=== PATIENT | female | born 1965 | race Caucasian/White ===

== ENCOUNTER 2016-11-25 23:31 | Observation (INO) | payer MEDICARE, OTHER ==
[~2016-11-25] VITALS: Ht 162.6 cm; Wt 81.1 kg
[~2016-11-25 23:31] MED LIST: BETH25 PO; CELE200C PO; CETI10 PO; CYMB60CA PO; ESOM1CAP6 PO; ESTR0.5T PO; FENO160T PO; GABA300C3 PO; INSU100V SQ; KLOR20TA6 PO; LASI20TA PO; LEVO.125 PO; LISI-363 PO; LORA1TAB PO; PERC5TAB12 PO; PROM25TA5 PO; RIVA15 PO; SUCR1TAB PO; SUMA50 PO; ZOLP10TA3 PO; [UNRECOGNIZED DRUG - OTHER]
[2016-11-25 23:38] VITALS: BP 166/91; PULSE 98; RESP 16; TEMP 98.2; O2SAT 100
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
[2016-11-26] MEDS ORDERED: INSULIN HUMAN REGULAR 1,000 UNITS/10 ML VIAL IVP ONE (00:15)
[2016-11-26] MEDS ORDERED: TETANUS/DIPHTHERIA TOXOID ADULT 0.5 ML VIAL IM ONE (00:15)
[2016-11-26 00:42] LABS: BLOOD, URINE TRACE (NEG); KETONE, URINE NEG (NEG); NITRITE,URINE NEG (NEG)
[2016-11-26 00:43] LABS: AUTOMATED NEUTROPHIL # 5.2 TH/MM3 (1.8-7.7); BASOPHIL % 0.3 % (0.0-2.0); EOSINOPHIL # 0.1 TH/MM3 (0-0.4); EOSINOPHIL % 0.6 % (0.0-4.0); HEMATOCRIT 38.9 % (35.0-46.0); HEMO FLAGS DIFF FINAL; LYMPH % 33.7 % (9.0-44.0); LYMPHOCYTE # 3.1 TH/MM3 (1.0-4.8); MEAN CELL VOLUME 83.9 FL (80.0-100.0); MEAN CORPUSCULAR HEMOGLOBIN 27.9 PG (27.0-34.0); MEAN CORPUSCULAR HGB CONC 33.3 % (32.0-36.0); MONO % 8.5 % (0.0-8.0); NEUT % 56.9 % (16.0-70.0); PLATELET COUNT 190 TH/MM3 (150-450); RED BLOOD COUNT 4.64 MIL/MM3 (4.00-5.30); RED CELL DISTRIBUTION WIDTH 13.2 % (11.6-17.2); WHITE BLOOD COUNT 9.2 TH/MM3 (4.0-11.0)
[2016-11-26 00:48] LABS: GLUCOSE,URINE 1000 OR GREATER mg/dL (NEG); URINE COLOR STRAW (YELLW/STRAW)
[2016-11-26 00:49] LABS: RBC, URINE 0-3 /hpf (0-3); WBC, URINE 0-2 /hpf (0-5)
[2016-11-26 00:49] LABS: POTASSIUM 4.2 MEQ/L (3.5-5.1)
[2016-11-26] MEDS: SODIUM CHLOR 0.9% 1000 ML INJ 1,000 ML IV SCH ×2 (00:49→01:08)
[2016-11-26 00:50] LABS: COMMENT (UR) CULT NOT INDICATED; CULTURE IF INDICATED CULT NOT INDICATED
[2016-11-26 00:52] LABS: BICARBONATE 25.5 MEQ/L (21.0-32.0)
[2016-11-26] MEDS ORDERED: LEVO175T2 PO (01:35)
[2016-11-26] MEDS ORDERED: AMBI10TA PO (01:35)
[2016-11-26] MEDS ORDERED: PROM25TA5 PO (01:35)
[2016-11-26] MEDS ORDERED: GABA300C5 PO (01:35)
[2016-11-26] MEDS ORDERED: DIVA250T3 PO (01:35)
[2016-11-26] MEDS ORDERED: FENO145T2 PO (01:35)
[2016-11-26] MEDS ORDERED: ESTR0.5T3 PO (01:35)
[2016-11-26] MEDS ORDERED: IMIT50TA PO (01:35)
[2016-11-26] MEDS ORDERED: SUCR1TAB PO (01:35)
[2016-11-26] MEDS ORDERED: DULO1CAP3 PO (01:35)
[2016-11-26] MEDS ORDERED: LANTUS2P SQ (01:35)
[2016-11-26] MEDS ORDERED: LORA2TAB7 PO (01:35)
[2016-11-26] MEDS ORDERED: ATOR1TAB18 PO (01:35)
[2016-11-26] MEDS ORDERED: NEXI40CA PO (01:35)
[2016-11-26] MEDS ORDERED: NOVORP2 SQ (01:35)
[2016-11-26] MEDS ORDERED: BETH25TA2 PO (01:35)
[2016-11-26] MEDS ORDERED: CETI10 PO (01:35)
[2016-11-26] MEDS ORDERED: SILVER SULFADIAZINE 1% CR 50 GM JAR TOPICAL ONE (02:30)
[2016-11-26 02:35] VITALS: BP 140/88; PULSE 83; RESP 18; O2SAT 97
== END 2016-11-26 03:19 | disposition home or self-care (01) ==
LOC: PHED 23:31 → UNDOADMOB 11-26 02:14 → PHEDA 11-26 02:14 → UNDODISOB 11-26 03:19
PROVIDERS: ADMIT Internal Medicine; ATTEND Internal Medicine
DX: T23.362A Burn of third degree of back of left hand, initial encounter (principal); X18.XXXA Contact with other hot metals, initial encounter; F17.210 Nicotine dependence, cigarettes, uncomplicated; D64.9 Anemia, unspecified; I10 Essential (primary) hypertension; E11.9 Type 2 diabetes mellitus without complications; G62.9 Polyneuropathy, unspecified; Z79.82 Long term (current) use of aspirin
CPT/HCPCS: 16020; 80048; 81001; 85025; 90471; 90714; 96361; 96374; 99284; G0378; J1815; J7030; 16000

== ENCOUNTER → 2017-05-11 | Outpatient (CLI) | payer MEDICARE, OTHER ==
[~2017-05-11] MED LIST changes: +AMBI10TA PO; +ASPI81TA5 PO; +ATOR1TAB18 PO; -BETH25 PO; +BETH25TA2 PO; -CELE200C PO; -CYMB60CA PO; +DIVA250T3 PO; +DULO1CAP3 PO; -ESOM1CAP6 PO; -ESTR0.5T PO; +ESTR0.5T3 PO; +FENO145T2 PO; -FENO160T PO; +FURO1TAB62 PO; -GABA300C3 PO; +GABA300C5 PO; +IMIT50TA PO; -INSU100V SQ; -KLOR20TA6 PO; +LANTUS2P SQ; -LASI20TA PO; -LEVO.125 PO; +LEVO175T2 PO; +LEVO75TA3 PO; -LISI-363 PO; -LORA1TAB PO; +LORA2TAB7 PO; +NEXI40CA PO; +NOVORP2 SQ; -PERC5TAB12 PO; +POTA-163 PO; +PROM25TA10 PO; -RIVA15 PO; +SERT-132 PO; -SUMA50 PO; +XARE20TA PO; +XIFA550T4 PO; -ZOLP10TA3 PO; -[UNRECOGNIZED DRUG - OTHER]
[2017-05-11 13:21] LABS: HEMATOCRIT 39.1 % (35.0-46.0); MEAN CELL VOLUME 87.2 FL (80.0-100.0); MEAN CORPUSCULAR HGB CONC 33.3 % (32.0-36.0); PLATELET COUNT 188 TH/MM3 (150-450); RED BLOOD COUNT 4.48 MIL/MM3 (4.00-5.30); RED CELL DISTRIBUTION WIDTH 14.7 % (11.6-17.2); REVIEW FLAG FINAL; WHITE BLOOD COUNT 9.8 TH/MM3 (4.0-11.0)
--- NOTE | 2017-05-13 08:14 | EKG ---
Date Performed: 05/11/2017 Time Performed: 12:54:39 PTAGE: 51 years EKG: Sinus rhythm POSSIBLE LEFT ATRIAL ENLARGEMENT POSSIBLE ANTERIOR MYOCARDIAL INFARCTION, OF INDETERMINATE AGE ABNOR MAL ECG NO PREVIOUS TRACING DOCTOR: Vargas [place] Interpretating Date/Time 05/13/2017 08:07:05
== END ==
LOC: CPRE 12:34
PROVIDERS: ATTEND Specialist
DX: Z01.810 Encounter for preprocedural cardiovascular examination (principal); J32.0 Chronic maxillary sinusitis; Z01.812 Encounter for preprocedural laboratory examination
CPT/HCPCS: 36415; 85027; 93005

== ENCOUNTER → 2017-05-13 | Day surgery (SDC) | payer MEDICARE, OTHER ==
--- NOTE | 2017-05-12 09:33 | MH ---
cc: ZULEIKA BARLOW M.D. DATE OF ADMISSION: 05/13/2017 HISTORY OF PRESENT ILLNESS A 51-year-old female with chronic sinusitis and nasal obstruction, for nasal sinus surgery. PAST MEDICAL HISTORY Past medical history notable for: 1. Previous CVA. 2. Previous NE. 3. Rheumatoid arthritis. 4. Chronic otitis media PAST SURGICAL HISTORY Notable for mastoidectomy x3 on the left and x2 on the right. MEDICATION Xarelto. REVIEW OF SYSTEMS/FAMILY HISTORY AND SOCIAL HISTORY Unremarkable. PHYSICAL EXAMINATION GENERAL: Well-appearing patient. HEENT: Exam reveals mastoid bowl bilaterally clear. Nasal cavity septal deviation, turbinate hypertrophy. Oral cavity, neck within normal limits. LUNGS: Clear. HEART: Regular rate and rhythm. ABDOMEN: Soft and nontender. EXTREMITIES: Reveal some peripheral wasting of the left hand with decreased mobility of the left hand and left arm. IMPRESSION Patient with chronic sinusitis and nasal obstruction, on Xarelto, for surgical intervention to improve nasal obstruction and chronic sinusitis. The patient instructed as to method of surgery and possible complication to include anesthetic complication, cardiac difficulty, pulmonary difficulty, stroke, or even . Surgical complication of bleeding, infection. Instructed the patient to continue Xarelto, so will likely see more bleeding than the average patient. The patient completely understands risk analysis and is comfortable continuing Xarelto. Instructed also in terms of surgical complications including injury to brain including CSF leak, meningitis, brain abscess or even , injury to orbit including blindness and diplopia, persistent septal perforation, dry nose, synechia formation and chance for recurrent symptoms despite adequate surgery. The patient appeared to agree, accept and understand above-mentioned risks and benefits. In addition no guarantees or warranties regarding outcome were given. We will therefore proceed with surgery. MD JUANJOSE Philippe/BLAS /8:47 AM /9:15 AM
[~2017-05-13] VITALS: Ht 162.6 cm; Wt 82.8 kg
[~2017-05-13] MED LIST changes: +ACETAMINOPHEN 1000 MG/100 ML VIAL IV ONE; -BETH25TA2 PO; +CHLORHEXIDINE GLUCONATE 2 % 1 PACK (2 CLOTHS) TOPICAL PRN; +DEXAMETHASONE SOD PHOS 4 MG/ML VIAL ONE; +DO NOT ADM ANY ANTICOAGULANT DRUGS PRN; +EPINEPHrine HCL (1:1000) 30 MG/30 ML VIAL ONE; +FAMOTIDINE 20 MG/2 ML VIAL ONE; -FENO145T2 PO; +INSULIN HUMAN REGULAR 1,000 UNITS/10 ML VIAL SQ PRN; +LACTATED RINGER'S 1000 ML IV PRN; -LEVO175T2 PO; +LIDOCAINE 1%/EPINEPHrine 1:100,000 SOLN 20 ML VIAL ONE; +MEPERIDINE HCL 25 MG/ML VIAL IV PUSH PRN; +METOPROLOL TARTRATE 25 MG TAB PO PRN; +MIDAZOLAM HCL 2 MG/2 ML VIAL ONE; +ONDANSETRON HCL 4 MG/2 ML VIAL IV PUSH ONE; +ONDANSETRON HCL 4 MG/2 ML VIAL IV PUSH PRN; +PHENYLEPH/NS 1000 MCG/10 ML SYR IV ONE; +POVIDONE IODINE 5% (ANTISEPSIS KIT) 4 APPLICATIONS EACH NARE PRN; -PROM25TA5 PO; +PROPOFOL 200 MG/20 ML AMP IV ONE; +SODIUM CHLORID 0.9% 500 ML IV PRN; -SUCR1TAB PO; +SUGAMMADEX SODIUM 200 MG/2 ML VIAL IV PUSH ONE; +ePHEDrine/NS 25 MG/5 ML SYR IV ONE; +fentaNYL CITRATE 250 MCG/5 ML AMP ONE
[2017-05-13 08:44] VITALS: BP 102/64; PULSE 82; RESP 16; TEMP 98.5; O2SAT 97
[2017-05-13 13:57] VITALS: BP 114/75; PULSE 84; RESP 16; TEMP 97.6; O2SAT 96
--- NOTE | 2017-05-14 23:14 | MP ---
cc: ZULEIKA BARLOW DATE OF SURGERY 05/13/17 PREOPERATIVE DIAGNOSIS Nasal obstruction, turbinate hypertrophy, chronic sinusitis. PROCEDURE 1. Open septal reconstruction bilateral endoscopic sinusotomy, 2. Bilateral endoscopic frontal sinusotomy, 3. Bilateral endoscopic maxillary antrostomy with removal of tissue 4. Bilateral endoscopic anterior posterior ethmoidectomy, 5. Bilateral endoscopic sphenoidotomy with removal of tissue 6. Bilateral inferior turbinate resection, submucous resection ANESTHESIA General anesthesia ESTIMATED BLOOD LOSS 75 mL. COMPLICATIONS No complications. SURGEON Dr. Eula Barlow PROCEDURE IN DETAIL Prepped, draped usual fashion. 1% Xylocaine 1:100,000 epinephrine injected into nasal septum, inferior turbinate, middle meatus, superior meatus bilaterally. 1:1000 adrenaline soaked pledgets were placed and then removed. Under endoscopic visualization, balloon apparatus was used to dilate frontal sinus recess bilaterally. Under endoscopic visualization maxillary sinus balloon apparatus was used to dilate natural antrostomy bilaterally and the sphenoidotomy also performed with the balloon under endoscopic visualization. At this point, the microdebrider was used to remove the uncinate process on the left side and dissect some of the frontal recess on the left side as well. Natural antrostomy identified and enlarged as well with microdebrider and polypoid tissue removed from it. An anterior-posterior ethmoidectomy performed with microdebrider. The microdebrider then inserted into the sphenoid ostium and polypoid tissue removed from it under endoscopic visualization on the left side. Attention turned to the right side where by uncinectomy performed under endoscopic visualization with microdebrider. Frontal sinus recess dissection performed with microdebrider under endoscopic visualization. Anterior posterior ethmoidectomy with microdebrider removed and natural antrostomy identified. enlarged and polypoid tissue removed from it with microdebrider, sphenoid recess also enlarged and polypoid tissue removed from it under endoscopic visualization with microdebrider. Mucoperichondrial incision made about care home back on the septum on the left side. Mucoperichondrial flap elevated. Significant amount of bone and cartilage removed improving nasal airway and reducing nasal fracture. Mucoperichondrial flap reapproximated. A portion of inferior turbinate bilaterally submucosally vaporized with the Coblator probe with power level 4 with multiple insertions left inferior turbinate, right inferior turbinate. Moderate bleeding was noted and bilateral Nasacort dressing was placed. The patient tolerated procedure well. MD JUANJOSE Philippe/ /10:43 AM /10:58 PM
== END | disposition home or self-care (01) ==
LOC: HSDC 07:31
PROVIDERS: ATTEND Specialist
DX: J32.0 Chronic maxillary sinusitis (principal); J32.9 Chronic sinusitis, unspecified; J34.89 Other specified disorders of nose and nasal sinuses; M06.9 Rheumatoid arthritis, unspecified; H66.90 Otitis media, unspecified, unspecified ear; E11.9 Type 2 diabetes mellitus without complications; Z79.4 Long term (current) use of insulin; I25.2 Old myocardial infarction; Z79.01 Long term (current) use of anticoagulants; Z86.73 Personal history of transient ischemic attack (TIA), and cerebral infarction without residual deficits
CPT/HCPCS: 00160; 30140; 30520; 31255; 31267; 31276; 31288; 82948; J0131; J0171; J1100; J2250; J2370; J2405; J3010; J7120

== ENCOUNTER 2018-03-28 15:44 | Observation (INO) | payer MEDICARE, OTHER ==
[~2018-03-28] VITALS: Ht 162.6 cm; Wt 79.0 kg
[~2018-03-28 15:44] MED LIST changes: -ACETAMINOPHEN 1000 MG/100 ML VIAL IV ONE; -ASPI81TA5 PO; -ATOR1TAB18 PO; +ATOR80TA45 PO; -CHLORHEXIDINE GLUCONATE 2 % 1 PACK (2 CLOTHS) TOPICAL PRN; -DEXAMETHASONE SOD PHOS 4 MG/ML VIAL ONE; -DO NOT ADM ANY ANTICOAGULANT DRUGS PRN; +ECASA81 PO; -EPINEPHrine HCL (1:1000) 30 MG/30 ML VIAL ONE; -FAMOTIDINE 20 MG/2 ML VIAL ONE; -INSULIN HUMAN REGULAR 1,000 UNITS/10 ML VIAL SQ PRN; -LACTATED RINGER'S 1000 ML IV PRN; -LIDOCAINE 1%/EPINEPHrine 1:100,000 SOLN 20 ML VIAL ONE; -MEPERIDINE HCL 25 MG/ML VIAL IV PUSH PRN; -METOPROLOL TARTRATE 25 MG TAB PO PRN; -MIDAZOLAM HCL 2 MG/2 ML VIAL ONE; -ONDANSETRON HCL 4 MG/2 ML VIAL IV PUSH ONE; -ONDANSETRON HCL 4 MG/2 ML VIAL IV PUSH PRN; -PHENYLEPH/NS 1000 MCG/10 ML SYR IV ONE; -POVIDONE IODINE 5% (ANTISEPSIS KIT) 4 APPLICATIONS EACH NARE PRN; -PROPOFOL 200 MG/20 ML AMP IV ONE; -SODIUM CHLORID 0.9% 500 ML IV PRN; -SUGAMMADEX SODIUM 200 MG/2 ML VIAL IV PUSH ONE; -ePHEDrine/NS 25 MG/5 ML SYR IV ONE; -fentaNYL CITRATE 250 MCG/5 ML AMP ONE
[2018-03-28 15:54] VITALS: BP 172/79; PULSE 93; RESP 23; TEMP 99.5; O2SAT 95
[2018-03-28] MEDS ORDERED: SODIUM CHLORIDE 0.9% FLUSH 10 ML FLUSH IVF PRN (16:15)
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
[2018-03-28] MEDS ORDERED: SODIUM CHLOR 0.9% 1000 ML INJ 1,000 ML IV ONE (17:15)
--- NOTE | 2018-03-28 17:18 | RADRPT ---
EXAM DATE: 03/28/2018 4:45 PM EDT AGE/SEX: 52 years / Female INDICATIONS: Chest pain, shortness of breath. CLINICAL DATA: This is the patient's initial encounter. Patient reports that signs and symptoms have been present for 1 week and indicates a pain score of 8/10. MEDICAL/SURGICAL HISTORY: Hypertension. Diabetes mellitus type II. Smoker. None. COMPARISON: [facility] [place], CHEST SINGLE AP, 07/05/2015. . FINDINGS: A single AP view of the chest demonstrates the lungs to be symmetrically aerated without evidence of mass, infiltrate or effusion. The cardiomediastinal contours are unremarkable. Osseous structures a re intact. CONCLUSION: Negative for acute process Electronically signed by: Jp Coulter MD 03/28/2018 5:17 PM EDT
--- NOTE | 2018-03-28 17:20 | RADRPT ---
EXAM DATE: 03/28/2018 4:43 PM EDT AGE/SEX: 52 years / Female INDICATIONS: Right foot pain after tea kettle fell on foot. Open wound on the lateral foot. CLINICAL DATA: This is the patient's initial encounter. Patient reports that signs and symptoms have been present for 1 week and indicates a pain score of 8/10. MEDICAL/SURGICAL HISTORY: Hypertension. Diabetes mellitus type II. Smoker. None. COMPARISON: No prior exams available for comparison. FINDINGS: Laceration lateral aspect of the foot without fracture. Anatomic alignment. No radiopaque foreign bod y. CONCLUSION: Soft tissue laceration, no fracture Electronically signed by: Jp Coulter MD 03/28/2018 5:18 PM EDT
[2018-03-28 17:56] LABS: AUTOMATED NEUTROPHIL # 4.6 TH/MM3 (1.8-7.7); BASOPHIL # 0.1 TH/MM3 (0-0.2); BASOPHIL % 0.7 % (0.0-2.0); EOSINOPHIL # 0.1 TH/MM3 (0-0.4); EOSINOPHIL % 1.4 % (0.0-4.0); HEMATOCRIT 36.8 % (35.0-46.0); LYMPH % 33.3 % (9.0-44.0); LYMPHOCYTE # 2.7 TH/MM3 (1.0-4.8); MEAN CELL VOLUME 84.2 FL (80.0-100.0); MEAN CORPUSCULAR HEMOGLOBIN 29.7 PG (27.0-34.0); MEAN CORPUSCULAR HGB CONC 35.3 % (32.0-36.0); MEAN PLATELET VOLUME 9.2 FL (7.0-11.0); MONO % 8.6 % (0.0-8.0); MONOCYTE # 0.7 TH/MM3 (0-0.9); PLATELET COUNT 175 TH/MM3 (150-450); RED BLOOD COUNT 4.36 MIL/MM3 (4.00-5.30); RED CELL DISTRIBUTION WIDTH 13.3 % (11.6-17.2); WHITE BLOOD COUNT 8.2 TH/MM3 (4.0-11.0)
[2018-03-28 18:06] LABS: INTERNATIONAL NORMALIZED RATIO 0.9 RATIO; PROTHROMBIN TIME - PATIENT 9.5 SEC (9.8-11.6)
[2018-03-28 18:09] LABS: ALBUMIN 3.4 GM/DL (3.4-5.0); ALT (GPT) 27 U/L (10-53); AST (GOT) 16 U/L (15-37); BICARBONATE 25.1 MEQ/L (21.0-32.0); BLOOD UREA NITROGEN 25 MG/DL (7-18); CALCIUM 8.3 MG/DL (8.5-10.1); CHLORIDE 100 MEQ/L (98-107); GLOMERULAR FILTRATION RATE 43 ML/MIN (>89); GLUCOSE,RANDOM 378 MG/DL (74-106); MAGNESIUM 2.2 MG/DL (1.5-2.5); SODIUM (NA) 134 MEQ/L (136-145)
[2018-03-28 18:09] LABS: BILIRUBIN, URINE NEG (NEG); BLOOD, URINE SMALL (NEG); GLUCOSE,URINE >=500 mg/dL (NEG); KETONE, URINE NEG (NEG); MUCUS URINE FEW /lpf (OCC); NITRITE,URINE NEG (NEG); SQUAMOUS EPITHELIAL CELL URINE 3 /hpf (0-5); URINE COLOR YELLOW (YELLW/STRAW); URINE LEUKOCYTE ESTERASE NEG (NEG)
[2018-03-28 18:18] LABS: ALKALINE PHOSPHATASE 171 U/L (45-117); TOTAL BILIRUBIN ADULT 0.2 MG/DL (0.2-1.0); TOTAL PROTEIN 7.3 GM/DL (6.4-8.2); TROPONIN I LESS THAN 0.02 NG/ML (0.02-0.05)
[2018-03-28] MEDS ORDERED: INSULIN HUMAN REGULAR 1,000 UNITS/10 ML VIAL SQ ONE (18:30)
[2018-03-28 19:13] VITALS: BP 149/84; PULSE 82; RESP 18; O2SAT 92
--- NOTE | 2018-03-28 19:33 | EKG ---
Date Performed: 03/28/2018 Time Performed: 15:57:09 PTAGE: 52 years EKG: Sinus rhythm INFERIOR MYOCARDIAL INFARCTION ABNORMAL ECG Compared to prior electrocardiogram, Poor R wave progres janice is present. PREVIOUS TRACING : 05/11/2017 12.54 DOCTOR: Angelito Nguyen Interpretating Date/Time 03/28/2018 19:32:00
--- NOTE | 2018-03-28 19:45 | RADRPT ---
EXAM DATE: 03/28/2018 7:11 PM EDT AGE/SEX: 52 years / Female INDICATIONS: Abdominal pain, elevated lipase. CLINICAL DATA: This is the patient's initial encounter. Patient reports that signs and symptoms have been present for 1 day and indicates a pain score of 2/10. MEDICAL/SURGICAL HISTORY: Diabetes mellitus type II. Gastroesophageal reflux disease. Cirrhos is. Anemia, hypertension, seizures. Cholecystectomy. Appendectomy. Tubal ligation. Hysterectomy. RADIATION DOSE: 12.41 CTDI (mGy) COMPARISON: [facility], CT ABDOMEN & PELVIS W CONTRAST, 06/01/2012. . TECHNIQUE: Multiple contiguous axial images were obtained through the abdomen. Images were obtained using multiple row detector helical technique. Using automated exposure control and adjustment of the mA and/or kV according to patient size, radiation dose was kept as low as reasonably achievable to o btain optimal diagnostic quality images. DICOM format image data is available electronically for rev iew and comparison. FINDINGS: There is respiratory motion artifact. Lower chest: No acute abnormality is identified. Hepatobiliary: Liver has normal density but demonstrates lobulated contour. No focal lesion is seen o n this noncontrast examination. There has been prior cholecystectomy clips in the gallbladder fossa. No bile duct dilatation is seen. Kidneys: No hydronephrosis, stone, or mass. Adrenal Glands: Within normal limits. Spleen: The spleen is enlarged measuring 14.3 cm in length similar to the prior study. Pancreas: Within normal limits. There is no surrounding inflammation. Vascular: The aorta is nonaneurysmal. IVC filter is present inferior to the level of the renal veins. There is mild atherosclerotic disease. Bowel/Mesentery: The stomach and small bowel demonstrate no abnormality. No acute colon abnormality i s seen. There is no free intraperitoneal air or fluid. Abdominal Wall: No hernia is visualized. Retroperitoneum: No lymphadenopathy. Bladder: No wall thickening or mass. Reproductive: Uterus is absent. No adnexal abnormality is visualized. Inguinal: No lymphadenopathy or hernia. Musculoskeletal: No acute osseous abnormality is identified. There are mild degenerative changes of t he lumbar spine. CONCLUSION: 1. No acute finding is identified to explain the patient's abdominal pain on this noncontrast examin ation is mildly degraded by motion artifact. There are no findings to indicate pancreatitis. 2. Liver demonstrates features are characteristic of cirrhosis. There is also splenomegaly which may indicate portal hypertension. Electronically signed by: Blas Quezada MD 03/28/2018 7:43 PM EDT
[2018-03-28 21:00] VITALS: BP 102/59; PULSE 74; RESP 16; O2SAT 98
[2018-03-28] MEDS ORDERED: HEPARIN SODIUM - SQ 10,000 UNITS/ML VIAL SQ SCH (21:00)
[2018-03-28] MEDS ORDERED: GLUCAGON 1 MG/ML VIAL OTHER PRN (21:00)
[2018-03-28] MEDS ORDERED: SODIUM CHLORIDE 0.9% FLUSH 10 ML FLUSH IV FLUSH PRN (21:00)
[2018-03-28] MEDS: SODIUM CHLORIDE 0.9% FLUSH 10 ML FLUSH IV FLUSH SCH (21:00)
[2018-03-28] MEDS ORDERED: DEXTROSE 50% IN WATER 50 ML VIAL(D50) IV PUSH PRN (21:00)
[2018-03-28] MEDS: INSULIN ASPART SUPPLEMENTAL SCALE SQ SCH (21:53)
[2018-03-28 22:15] VITALS: BP 116/61; PULSE 76; RESP 18; TEMP 98; O2SAT 96
--- NOTE | 2018-03-28 22:25 | HHI.HP ---
[facility] Admission Diagnosis chest pain, rock act, suicidal ideation Diagnoses: Travel History International Travel<30 Days: No Contact w/Intl Traveler <30 Da: No Traveled to Known Affected Are: No History of Present Illness 52-year-old female brought to the emergency department under Rock act for suicidal ideation. The patient reports that she called her sons to say goodbye but she did not actually have a plan to commit suicide. While in the emergency department she developed left-sided and substernal chest pain. She endorses associated shortness of breath and a headache. The pain is nonradiating. She also complains of a right foot wound that has recently been worsening. She denies any fever/chills. No abdominal pain. No nausea/vomiting/diarrhea. Patient reports she did not take any additional medications or foreign substances and did not try to harm herself. Review of Systems Except as stated in HPI: all other systems reviewed are Neg Past Family Social History Past Medical History Diabetes mellitus Coronary artery disease status post AL in 2001 Hypertension Hyperlipidemia Depression Past Surgical History Eye surgery Ear surgery Arm surgery secondary to trauma Cholecystectomy Appendectomy Reported Medications Reported Meds & Active Scripts Active Reported Sertraline (Sertraline HCl) 50 Mg Tab 50 Mg PO DAILY Xifaxan (Rifaximin) 550 Mg Tab 550 Mg PO Q12HR Phenergan (Promethazine HCl) 25 Mg Tablet 25 Mg PO Q6H PRN Potassium Chloride ER (Potassium Chloride) 20 Meq Tab 10 Meq PO DAILY Levothyroxine (Levothyroxine Sodium) 75 Mcg Tab 75 Mcg PO DAILY Aspirin DR (Aspirin) 81 Mg Tabdr 81 Mg PO DAILY Xarelto (Rivaroxaban) 20 Mg Tab 20 Mg PO DAILY Divalproex ER (Divalproex Sodium) 250 Mg Emily 500 Mg PO DAILY Atorvastatin (Atorvastatin Calcium) 80 Mg Tab 80 Mg PO DAILY Novolin R Inj (Insulin Human Regular) 1,000 Unit/10 Ml Vial 0 SQ DIRECTED Sliding Scale As Directed. Lantus Inj (Insulin Glargine) 100 Unit/Ml Inj 30 Units SQ BID Ambien (Zolpidem Tartrate) 10 Mg Tab 10 Mg PO HS PRN Lorazepam 2 Mg Tab 2 Mg PO Q8H PRN Imitrex (Sumatriptan Succinate) 50 Mg Tab 50 Mg PO ONCE PRN If a satisfactory response has not been obtained at 2 hours, a second dose may be administered Duloxetine DR (Duloxetine HCl) 60 Mg Capdr 60 Mg PO DAILY Nexium (Esomeprazole DR) 40 Mg Capdr 40 Mg PO DAILY Cetirizine (Cetirizine HCl) 10 Mg Tab 10 Mg PO DAILY PRN Estrace (Estradiol) 0.5 Mg Tab 0.5 Mg PO DAILY Gabapentin 300 Mg Cap 400 Mg PO QID Allergies: Coded Allergies: acetaminophen (Unverified Allergy, Severe, Hives, Vomiting, 05/18/17) adhesive (Unverified Allergy, Severe, ALL TAPE EXCEPT PAPER TAPE = BLISTERS, 05/18/17) hydrocodone (Unverified Allergy, Severe, Hives, Vomiting, 05/18/17) ketorolac (Unverified Allergy, Intermediate, Rash, 05/18/17) morphine (Unverified Allergy, Intermediate, Hives, 05/18/17) tramadol (Unverified Allergy, Mild, Hives, 05/18/17) *MDRO Multi-Drug Resistant Organism (Verified Adverse Reaction, Unknown, ) 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 Family History Father with CAD Mother with CHF and diabetes mellitus Social History Smokes approximately half a pack per day. Rare alcohol. Denies illicit drugs. Physical Exam Vital Signs Vital Signs Date Time Temp Pulse Resp B/P (MAP) Pulse Ox O2 Delivery O2 Flow Rate FiO2 03/28/18 22:00 03/28/18 21:00 74 16 102/59 (73) 98 Room Air 03/28/18 19:13 82 18 149/84 (105) 92 Room Air 03/28/18 15:58 Room Air 03/28/18 15:54 99.5 93 23 172/79 (110) 95 Physical Exam GENERAL: female lying in bed SKIN: 3 cm area of ulceration coated in eschar on the lateral aspect of the right foot. No drainage noted. No surrounding erythema or induration. No fluctuance. HEAD: Atraumatic. Normocephalic. No temporal or scalp tenderness. EYES: Pupils equal round and reactive. Extraocular motions intact. No scleral icterus. No injection or drainage. ENT: Nose without bleeding, purulent drainage or septal hematoma. Throat without erythema, tonsillar hypertrophy or exudate. Uvula midline. Airway patent. NECK: Trachea midline. No JVD or lymphadenopathy. Supple, nontender, no meningeal signs. CARDIOVASCULAR: Regular rate and rhythm without murmurs, gallops, or rubs. RESPIRATORY: Clear to auscultation. Breath sounds equal bilaterally. No wheezes , rales, or rhonchi. GASTROINTESTINAL: Abdomen soft, non-tender, nondistended. No hepato-splenomegaly , or palpable masses. No guarding. MUSCULOSKELETAL: Extremities without clubbing, cyanosis, or edema. No joint tenderness, effusion, or edema noted. No calf tenderness. Left hand contracted secondary to trauma. NEUROLOGICAL: Awake and alert. Cranial nerves II through XII intact. Motor and sensory grossly within normal limits. Normal speech. Laboratory Laboratory Tests Test 03/28/18 14:50 03/28/18 17:00 03/28/18 17:32 Blood Gas Puncture Site RN Blood Gas Patient Temperature 98.6 Venous Blood pH 7.37 Venous Blood Partial Pressure CO2 48 Venous Blood Partial Pressure O2 33 Venous Blood HCO3 27 Venous Blood Oxygen Saturation 59 Venous Blood Oxygen Content 10.7 Venous Blood Base Excess 2.6 Blood Gas Inspired Oxygen 21 White Blood Count 8.2 Red Blood Count 4.36 Hemoglobin 13.0 Hematocrit 36.8 Mean Corpuscular Volume 84.2 Mean Corpuscular Hemoglobin 29.7 Mean Corpuscular Hemoglobin Concent 35.3 Red Cell Distribution Width 13.3 Platelet Count 175 Mean Platelet Volume 9.2 Neutrophils (%) (Auto) 56.0 Lymphocytes (%) (Auto) 33.3 Monocytes (%) (Auto) 8.6 Eosinophils (%) (Auto) 1.4 Basophils (%) (Auto) 0.7 Neutrophils # (Auto) 4.6 Lymphocytes # (Auto) 2.7 Monocytes # (Auto) 0.7 Eosinophils # (Auto) 0.1 Basophils # (Auto) 0.1 CBC Comment DIFF FINAL Differential Comment Erythrocyte Sedimentation Rate 39 Prothrombin Time 9.5 Prothromb Time International Ratio 0.9 Activated Partial Thromboplast Time 21.3 Blood Urea Nitrogen 25 Creatinine 1.30 Random Glucose 378 Total Protein 7.3 Albumin 3.4 Calcium Level 8.3 Magnesium Level 2.2 Alkaline Phosphatase 171 Aspartate Amino Transf (AST/SGOT) 16 Alanine Aminotransferase (ALT/SGPT) 27 Total Bilirubin 0.2 Sodium Level 134 Potassium Level 4.2 Chloride Level 100 Carbon Dioxide Level 25.1 Anion Gap 9 Estimat Glomerular Filtration Rate 43 Total Creatine Kinase 104 Creatine Kinase MB 2.4 Troponin I LESS THAN 0.02 C-Reactive Protein 0.30 Lipase 905 Thyroid Stimulating Hormone 3rd Gen 1.550 Ethyl Alcohol Level LESS THAN 3 B-Hydroxybutyrate 0.10 Urine Color YELLOW Urine Turbidity CLEAR Urine pH 5.0 Urine Specific [place] 1.017 Urine Protein 100 Urine Glucose (UA) >=500 Urine Ketones NEG Urine Occult Blood SMALL Urine Nitrite NEG Urine Bilirubin NEG Urine Urobilinogen LESS THAN 2 Urine Leukocyte Esterase NEG Urine RBC 1 Urine WBC 1 Urine Squamous Epithelial Cells 3 Urine Mucus FEW Microscopic Urinalysis Comment CULT NOT INDICATED Urine Opiates Screen NEG Urine Barbiturates Screen NEG Urine Amphetamines Screen NEG Urine Benzodiazepines Screen NEG Urine Cocaine Screen NEG Urine Cannabinoids Screen NEG Result Diagram: 03/28/18 17003/28/18 170 Caprini VTE Risk Assessment Caprini VTE Risk Assessment: No/Low Risk (score <= 1) Caprini Risk Assessment Model Point Value = 1 Point Value = 2 Point Value = 3 Point Value = 5 Age 41-60 Minor surgery BMI > 25 kg/m2 Swollen legs Varicose veins or History of unexplained or recurrent spontaneous Oral contraceptives or hormone replacement Sepsis (< 1 month) Serious lung disease, including pneumonia (< 1 month) Abnormal pulmonary function Acute myocardial infarction Congestive heart failure (< 1 month) History of inflammatory bowel disease Medical patient at bed rest Age 61-74 Arthroscopic surgery Major open surgery (> 45 min) Laparoscopic surgery (> 45 min) Malignancy Confined to bed (> 72 hours) Immobilizing plaster cast Central venous access Age >= 75 History of VTE Family history of VTE Factor V Leiden Prothrombin [id number] Lupus anticoagulant Anticardiolipin antibodies Elevated serum homocysteine Heparin-induced thrombocytopenia Other congenital or acquired thrombophilia Stroke (< 1 month) Elective arthroplasty Hip, pelvis, or leg fracture Acute spinal cord injury (< 1 month) Prophylaxis Regimen Total Risk Factor Score Risk Level Prophylaxis Regimen 0-1 Low Early ambulation 2 Moderate Order ONE of the following: *Sequential Compression Device (SCD) *Heparin 5000 units SQ BID 3-4 Higher Order ONE of the following medications: *Heparin 5000 units SQ TID *Enoxaparin/Lovenox 40 mg SQ daily (WT < 150 kg, CrCl > 30 mL/min) *Enoxaparin/Lovenox 30 mg SQ daily (WT < 150 kg, CrCl > 10-29 mL/min) *Enoxaparin/Lovenox 30 mg SQ BID (WT < 150 kg, CrCl > 30 mL/min) AND/OR *Sequential Compression Device (SCD) 5 or more Highest Order ONE of the following medications: *Heparin 5000 units SQ TID (Preferred with Epidurals) *Enoxaparin/Lovenox 40 mg SQ daily (WT < 150 kg, CrCl > 30 mL/min) *Enoxaparin/Lovenox 30 mg SQ daily (WT < 150 kg, CrCl > 10-29 mL/min) *Enoxaparin/Lovenox 30 mg SQ BID (WT < 150 kg, CrCl > 30 mL/min) AND *Sequential Compression Device (SCD) Assessment and Plan Assessment and Plan Assessment/plan: 1. Suicidal ideation Patient under Rock act Toxicology screen negative Patient denies any attempts on her life Psychiatry consulted, appreciate recommendations Sitter 2. Chest pain Currently resolved Initial troponin negative EKG shows sinus rhythm without ST segment elevation or depression, personally reviewed ACS rule out pending; serial troponins/EKGs May be secondary to anxiety 3. Diabetes mellitus Continue home Lantus Sliding-scale insulin Monitor blood glucose 3. CAD/hypertension/hyperlipidemia/CAD Continue home medication 4. Depression Continue home medications Pending psychiatry recommendations 5. Chronic kidney disease Creatinine 1.30, baseline for the patient Monitor renal function FEN N.p.o. Electrolytes: Monitor and replete as needed NS at 100 cc/hour Heparin Pretty Quan MD Mar 28, 2018 22:25
[2018-03-28] MEDS: SODIUM CHLOR 0.9% 1000 ML INJ 1,000 ML IV SCH (22:41)
[2018-03-29 00:20] LABS: TROPONIN I LESS THAN 0.02 NG/ML (0.02-0.05)
[2018-03-29 01:21] VITALS: PULSE 78
[2018-03-29 01:39] VITALS: BP 97/61; PULSE 75; RESP 16; TEMP 98.4; O2SAT 96
[2018-03-29 04:47] VITALS: BP 117/71; PULSE 78; RESP 16; TEMP 98.6; O2SAT 90
[2018-03-29 05:09] LABS: AUTOMATED NEUTROPHIL # 3.3 TH/MM3 (1.8-7.7); BASOPHIL # 0.1 TH/MM3 (0-0.2); EOSINOPHIL # 0.2 TH/MM3 (0-0.4); EOSINOPHIL % 2.2 % (0.0-4.0); LYMPH % 44.1 % (9.0-44.0); LYMPHOCYTE # 3.2 TH/MM3 (1.0-4.8); MEAN CELL VOLUME 84.4 FL (80.0-100.0); MEAN CORPUSCULAR HGB CONC 34.4 % (32.0-36.0); MONO % 7.3 % (0.0-8.0); MONOCYTE # 0.5 TH/MM3 (0-0.9); NEUT % 45.4 % (16.0-70.0); PLATELET COUNT 156 TH/MM3 (150-450); RED BLOOD COUNT 4.14 MIL/MM3 (4.00-5.30); RED CELL DISTRIBUTION WIDTH 13.7 % (11.6-17.2); WHITE BLOOD COUNT 7.3 TH/MM3 (4.0-11.0)
[2018-03-29 05:36] LABS: BICARBONATE 24.9 MEQ/L (21.0-32.0); BLOOD UREA NITROGEN 25 MG/DL (7-18); CALCIUM 8.1 MG/DL (8.5-10.1); CHLORIDE 106 MEQ/L (98-107); CREATININE 1.05 MG/DL (0.50-1.00); GLOMERULAR FILTRATION RATE 55 ML/MIN (>89); GLUCOSE,RANDOM 188 MG/DL (74-106); SODIUM (NA) 140 MEQ/L (136-145)
[2018-03-29 05:39] LABS: TROPONIN I LESS THAN 0.02 NG/ML (0.02-0.05)
[2018-03-29 08:50] VITALS: BP 159/82; PULSE 88; RESP 20; TEMP 97.3; O2SAT 97
[2018-03-29] MEDS: INSULIN ASPART SUPPLEMENTAL SCALE SQ SCH ×3 (08:54→19:22)
[2018-03-29] MEDS: GABAPENTIN 400 MG CAP PO SCH ×3 (08:55→18:34)
[2018-03-29] MEDS: SODIUM CHLOR 0.9% 1000 ML INJ 1,000 ML IV SCH ×2 (08:57→17:01)
[2018-03-29] MEDS ORDERED: DIVALPROEX SODIUM E.R. 500 MG TAB PO SCH (09:00)
[2018-03-29] MEDS ORDERED: RIFAXIMIN 550 MG TAB PO SCH (09:00)
[2018-03-29] MEDS ORDERED: RIVAROXABAN 20 MG TAB PO SCH (09:00)
[2018-03-29] MEDS ORDERED: INSULIN DETEMIR 100 UNITS/ML VIAL SQ SCH (09:00)
[2018-03-29] MEDS: SODIUM CHLORIDE 0.9% FLUSH 10 ML FLUSH IV FLUSH SCH (09:00)
[2018-03-29] MEDS ORDERED: SERTRALINE HCL 50 MG TAB PO SCH (09:00)
[2018-03-29] MEDS ORDERED: ASPIRIN EC 81 MG TABEC PO SCH (09:00)
[2018-03-29] MEDS ORDERED: DULoxetine HCl DR 60 MG CAP PO SCH (09:00)
[2018-03-29] MEDS ORDERED: ATORVASTATIN 80 MG TAB PO SCH (09:00)
--- NOTE | 2018-03-29 10:14 | HHI.PR ---
Subjective Remarks She is in bed appears sleepy. Denies any chest pain or shortness of breath. Has pain at her right foot. She does not have any fever or chills. No nausea or vomiting. Objective Vitals Vital Signs Date Time Temp Pulse Resp B/P (MAP) Pulse Ox O2 Delivery O2 Flow Rate FiO2 03/29/18 08:50 97.3 88 20 159/82 (107) 97 03/29/18 04:47 98.6 78 16 117/71 (86) 90 03/29/18 01:39 98.4 75 16 97/61 (73) 96 03/29/18 01:21 78 03/28/18 22:15 98.0 76 18 116/61 (79) 96 03/28/18 22:00 03/28/18 21:00 74 16 102/59 (73) 98 Room Air 03/28/18 19:13 82 18 149/84 (105) 92 Room Air 03/28/18 15:58 Room Air 03/28/18 15:54 99.5 93 23 172/79 (110) 95 I/O 03/28/18 03/28/18 03/28/18 03/29/18 03/29/18 03/29/18 07:00 15:00 23:00 07:00 15:00 23:00 Intake Total 1000 ml Balance 1000 ml Intake IV Total 1000 ml Result Diagram: 03/29/18 0410 03/29/18 0410 Imaging Last Impressions Chest X-Ray 03/28/18 1610 Signed Impressions: CONCLUSION: Negative for acute process Foot X-Ray 03/28/18 0000 Signed Impressions: CONCLUSION: Soft tissue laceration, no fracture Abdomen/Pelvis CT 03/28/18 0000 Signed Impressions: CONCLUSION: 1. No acute finding is identified to explain the patient's abdominal pain on t his noncontrast examination is mildly degraded by motion artifact. There are no findings to indicate pancreatitis. 2. Liver demonstrates features are characteristic of cirrhosis. There is also splenomegaly which may indicate portal hypertension. Objective Remarks GENERAL: female lying in bed SKIN: 3 cm area of ulceration coated in eschar on the lateral aspect of the right foot. No drainage noted. No surrounding erythema or induration. No fluctuance. CARDIOVASCULAR: Regular rate and rhythm without murmurs, gallops, or rubs. RESPIRATORY: Clear to auscultation. Breath sounds equal bilaterally. No wheezes , rales, or rhonchi. GASTROINTESTINAL: Abdomen soft, non-tender, nondistended. No hepato-splenomegaly , or palpable masses. No guarding. MUSCULOSKELETAL: Extremities without clubbing, cyanosis, or edema. No joint tenderness, effusion, or edema noted. No calf tenderness. Left hand contracted secondary to trauma. NEUROLOGICAL: Awake and alert. Cranial nerves II through XII intact. Motor and sensory grossly within normal limits. Normal speech. A/P Assessment and Plan Suicidal ideation Patient under Rock act Toxicology screen negative Patient denies any attempts on her life Psychiatry consulted, appreciate recommendations, DC to med psych when cleared by consultants or if no plan for surgery Sitter Chest pain Currently resolved Initial troponin negative EKG shows sinus rhythm without ST segment elevation or depression, personally reviewed ACS rule out pending; serial troponins/EKGs May be secondary to anxiety Diabetes mellitus 2 Continue home Lantus Sliding-scale insulin Monitor blood glucose CAD/hypertension/hyperlipidemia/CAD Continue home medication Depression Continue home medications Pending psychiatry recommendations Chronic kidney disease Creatinine 1.30, baseline for the patient Monitor renal function Electrolytes: Monitor and replete as needed NS at 100 cc/hour DVT ppx: Heparin Improved. No plan for surgery per podiatry. She is medically stable. Plan to discharge patient to psychiatric unit. To follow-up with PCP and consultants as outpatient. Discharge plan: The patient is stable medically discharge to inpatient psychiatric unit To follow-up with PCP and consultants as outpatient Medications per medication reconciliation's Diet diabetic diet Activity ad ruth. as tolerated Time spent at discharge more than 30 minutes for coordination of discharge. Pao Issa MD Mar 29, 2018 10:14
--- NOTE | 2018-03-29 10:23 | HHI.DS ---
Discharge Summary Admission Date Mar 28, 2018 at 20:11 Discharge Date: Mar 29, 2018 Admitting Diagnosis chest pain, rock act, suicidal ideation (1) Suicidal ideation ICD Code: R45.851 - Suicidal ideations Status: Acute (2) Chest pain ICD Code: R07.9 - Chest pain, unspecified Status: Acute (3) Right foot ulcer ICD Code: L97.519 - Non-pressure chronic ulcer of other part of right foot with unspecified severity Procedures No procedures Brief History - From Admission 52-year-old female brought to the emergency department under Rock act for suicidal ideation. The patient reports that she called her sons to say goodbye but she did not actually have a plan to commit suicide. While in the emergency department she developed left-sided and substernal chest pain. She endorses associated shortness of breath and a headache. The pain is nonradiating. She also complains of a right foot wound that has recently been worsening. She denies any fever/chills. No abdominal pain. No nausea/vomiting/diarrhea. Patient reports she did not take any additional medications or foreign substances and did not try to harm herself. CBC/BMP: 03/29/18 0410 03/29/18 0410 Significant Findings Laboratory Tests Test 03/28/18 14:50 03/28/18 17:00 03/28/18 17:32 03/28/18 23:41 Venous Blood Partial Pressure O2 33 mmHg (35-40) Venous Blood HCO3 27 mmol/L (22-26) Venous Blood Oxygen Saturation 59 % (70-76) Venous Blood Base Excess 2.6 mmol/L (-2-2) Monocytes (%) (Auto) 8.6 % (0.0-8.0) Erythrocyte Sedimentation Rate 39 mm/hr (0-30) Prothrombin Time 9.5 SEC (9.8-11.6) Activated Partial Thromboplast Time 21.3 SEC (24.3-30.1) Blood Urea Nitrogen 25 MG/DL (7-18) Creatinine 1.30 MG/DL (0.50-1.00) Random Glucose 378 MG/DL (74-106) Calcium Level 8.3 MG/DL (8.5-10.1) Alkaline Phosphatase 171 U/L (45-117) Sodium Level 134 MEQ/L (136-145) Estimat Glomerular Filtration Rate 43 ML/MIN (>89) Troponin I LESS THAN 0.02 NG/ML LESS THAN 0.02 NG/ML Lipase 905 U/L (73-393) Urine Protein 100 mg/dL (NEG-TRACE) Urine Occult Blood SMALL (NEG) Urine Mucus FEW /lpf (OCC) Test 03/29/18 04:10 Lymphocytes (%) (Auto) 44.1 % (9.0-44.0) Blood Urea Nitrogen 25 MG/DL (7-18) Creatinine 1.05 MG/DL (0.50-1.00) Random Glucose 188 MG/DL (74-106) Calcium Level 8.1 MG/DL (8.5-10.1) Estimat Glomerular Filtration Rate 55 ML/MIN (>89) Troponin I LESS THAN 0.02 NG/ML Imaging Last Impressions Chest X-Ray 03/28/18 1610 Signed Impressions: CONCLUSION: Negative for acute process Foot X-Ray 03/28/18 0000 Signed Impressions: CONCLUSION: Soft tissue laceration, no fracture Abdomen/Pelvis CT 03/28/18 0000 Signed Impressions: CONCLUSION: 1. No acute finding is identified to explain the patient's abdominal pain on t his noncontrast examination is mildly degraded by motion artifact. There are no findings to indicate pancreatitis. 2. Liver demonstrates features are characteristic of cirrhosis. There is also splenomegaly which may indicate portal hypertension. PE at Discharge GENERAL: female lying in bed SKIN: 3 cm area of ulceration coated in eschar on the lateral aspect of the right foot. No drainage noted. No surrounding erythema or induration. No fluctuance. HEAD: Atraumatic. Normocephalic. No temporal or scalp tenderness. EYES: Pupils equal round and reactive. Extraocular motions intact. No scleral icterus. No injection or drainage. ENT: Nose without bleeding, purulent drainage or septal hematoma. Throat without erythema, tonsillar hypertrophy or exudate. Uvula midline. Airway patent. NECK: Trachea midline. No JVD or lymphadenopathy. Supple, nontender, no meningeal signs. CARDIOVASCULAR: Regular rate and rhythm without murmurs, gallops, or rubs. RESPIRATORY: Clear to auscultation. Breath sounds equal bilaterally. No wheezes , rales, or rhonchi. GASTROINTESTINAL: Abdomen soft, non-tender, nondistended. No hepato-splenomegaly , or palpable masses. No guarding. MUSCULOSKELETAL: Extremities without clubbing, cyanosis, or edema. No joint tenderness, effusion, or edema noted. No calf tenderness. Left hand contracted secondary to trauma. NEUROLOGICAL: Awake and alert. Cranial nerves II through XII intact. Motor and sensory grossly within normal limits. Normal speech. Hospital Course Suicidal ideation Patient under Rock act Toxicology screen negative Patient denies any attempts on her life Psychiatry consulted, appreciate recommendations, DC to med psych. Sitter Right foot stage II ulceration, uninfected Seen by podiatry Dr Trejo No surgical intervention plans at this time. The patient was advised she needs to return to [facility], as she would benefit from routine debridement of the excessive hypertrophic tissue. Dressings daily as a prophylaxis to prevent any infection. A surgical shoe was ordered to facilitate in ambulation. Clear by podiatry Dr. Trejo for discharge to follow-up as outpatient. Chest pain Currently resolved Initial troponin negative EKG shows sinus rhythm without ST segment elevation or depression, personally reviewed ACS rule out pending; serial troponins/EKGs May be secondary to anxiety Diabetes mellitus 2 Continue home Lantus Sliding-scale insulin Monitor blood glucose CAD/hypertension/hyperlipidemia/CAD Continue home medication Depression Continue home medications Pending psychiatry recommendations Chronic kidney disease Creatinine 1.30, baseline for the patient Monitor renal function Electrolytes: Monitor and replete as needed NS at 100 cc/hour DVT ppx: Heparin Improved. No plan for surgery of the right foot ulcerations. Patient is discharged to psychiatric unit in stable condition to follow-up with PCP and consultants as outpatient. Pt Condition on Discharge: Stable Discharge Disposition: Disc to Psych Care Fac Discharge Time: > 30 minutes Discharge Instructions DIET: Follow Instructions for: Heart Healthy Diet, Diabetic Diet Activities you can perform: Regular-No Restrictions Follow up Referrals: PCP Follow-up - 2-3 Days Podiatry - 1 Week Continued Medications: Aspirin DR (Aspirin DR) 81 Mg Tabdr 81 MG PO DAILY, TAB 0 Refills Atorvastatin (Atorvastatin) 80 Mg Tab 80 MG PO DAILY for Cholesterol Management, #30 TAB 0 Refills Cetirizine (Cetirizine) 10 Mg Tab 10 MG PO DAILY PRN for NASAL CONGESTION, TAB 0 Refills Divalproex ER (Divalproex ER) 250 Mg Emily 500 MG PO DAILY for Control Seizures, #30 TAB [address] (Duloxetine DR) 60 Mg Capdr 60 MG PO DAILY, #30 CAP [address] (Nexium) 40 Mg Capdr 40 MG PO DAILY, CAP 0 Refills Estradiol (Estrace) 0.5 Mg Tab 0.5 MG PO DAILY for Estrogen Supplements, #30 TAB 0 Refills Gabapentin (Gabapentin) 300 Mg Cap 400 MG PO QID, #90 CAP 0 Refills Insulin Glargine Inj (Lantus Inj) 100 Unit/Ml Inj 30 UNITS SQ BID Insulin Human Regular Inj (Novolin R Inj) 1,000 Unit/10 Ml Vial 0 SQ DIRECTED for Blood Sugar Management, #10 ML 0 Refills Sliding Scale As Directed. Levothyroxine (Levothyroxine) 75 Mcg Tab 75 MCG PO DAILY for Thyroid, #30 TAB 0 Refills Lorazepam (Lorazepam) 2 Mg Tab 2 MG PO Q8H PRN for ANXIETY, TAB 0 Refills Potassium Chloride ER (Potassium Chloride ER) 20 Meq Tab 10 MEQ PO DAILY for Electrolyte Replacement, #30 TAB 0 Refills Promethazine (Phenergan) 25 Mg Tablet 25 MG PO Q6H PRN for NAUSEA OR VOMITING, TAB 0 Refills Rifaximin (Xifaxan) 550 Mg Tab 550 MG PO Q12HR for Hepatic encephalopathy, #60 TAB 0 Refills Rivaroxaban (Xarelto) 20 Mg Tab 20 MG PO DAILY for Blood Clot Prevention, TAB 0 Refills Sertraline (Sertraline) 50 Mg Tab 50 MG PO DAILY, #30 TAB 0 Refills Sumatriptan (Imitrex) 50 Mg Tab 50 MG PO ONCE PRN for MIGRAINE HEADACHE, TAB 0 Refills If a satisfactory response has not been obtained at 2 hours, a second dose may be administered Zolpidem (Ambien) 10 Mg Tab 10 MG PO HS PRN for INSOMNIA, TAB 0 Refills Pao Issa MD Mar 29, 2018 10:23
[2018-03-29 11:57] VITALS: BP 164/90; PULSE 86; RESP 12; TEMP 98.3; O2SAT 99
--- NOTE | 2018-03-29 13:24 | EKG ---
Date Performed: 03/29/2018 Time Performed: 04:45:14 PTAGE: 52 years EKG: Sinus rhythm NORMAL ECG No significant change from prior electrocardiogram. PREVIOUS TRACING : 03/28/2018 22.43 DOCTOR: Angelito Nguyen Interpretating Date/Time 03/29/2018 13:22:37
--- NOTE | 2018-03-29 13:37 | EKG ---
Date Performed: 03/28/2018 Time Performed: 22:43:17 PTAGE: 52 years EKG: Sinus rhythm INFERIOR MYOCARDIAL INFARCTION ABNORMAL ECG No significant change from prior electrocardiogram. PREVIOUS TRACING : 03/28/2018 15.57 DOCTOR: Angelito Nguyen Interpretating Date/Time 03/29/2018 13:35:52
[2018-03-29] MEDS ORDERED: MUPIROCIN 2% OINT 22 GM TUBE TOPICAL SCH (15:00)
--- NOTE | 2018-03-29 15:05 | PD.PSY.CON ---
Provisional Diagnosis Admission Date Mar 28, 2018 at 20:11 [place] I. Major depressive disorder, recurrent, severe, without psychosis, anxiety [place] II. Deferred [place] III. Diabetes, hypertension, neuropathy, History of Present Illness Service Psychiatry Consult Requested By Psychiatry Reason for Consult SI Primary Care Physician Unknown HPI The patient is a 52-year-old woman, domiciled in [place] with a friend, , unemployed, supported by [facility], with reported psychiatric history of depression, anxiety, no previous psychiatric hospitalizations, no previous suicidal attempts, outpatient psychiatric care with Dr. Evans, she is on Cymbalta 60, zoloft 50, Ativan 1 mg twice daily, medical history of diabetes , hypertension, neuropathy, who was brought to the emergency department under [place] act for suicidal ideation. On psychiatric evaluation today the patient is found in the ER, she seems to be quite irritable, no very forthcoming with a psychiatric evaluation, stating that she is very depressed but she she does not want to talk about the source of her depression at this moment. With redirection, she is able to say that she has been having difficulty with her family, especially with her 2 kids. She says that 1 of her kids is in long term, another one is giving her a lot of problems, and she is also having conflicts with her best friend. She reports that she is tired and there is nothing to live for. She reports hopelessness, helplessness, lack of motivation, poor energy, lack of sleep, generalized pessimism, and suicidal ideation on a specific plan at the moment. The patient is oriented 3, no attention deficit, no fluctuation of consciousness, not delusions, no paranoia, no ideas of reference, no loosening of associations are present. The patient denies the use of illegal drugs and alcohol. Review of Systems Constitutional: DENIES: Diaphoretic episodes, Fatigue, Fever, Weight gain, Weight loss, Chills, Dizziness, Change in appetite, Night Sweats Endocrine: DENIES: Abnorml menstrual pattern, Heat/cold intolerance, Polydipsia , Polyuria, Polyphagia Eyes: DENIES: Blurred vision, Diplopia, Eye inflammation, Eye pain, Vision loss , Photosensitivity, Double Vision Ears, nose, mouth, throat: DENIES: Tinnitus, Hearing loss, Vertigo, Nasal discharge, Oral lesions, Throat pain, Hoarseness, Ear Pain, Running Nose, Epistaxis, Sinus Pain, Toothache, Odynophagia Respiratory: DENIES: Apneas, Cough, Snoring, Wheezing, Hemoptysis, Sputum production, Shortness of breath Cardiovascular: DENIES: Chest pain, Palpitations, Syncope, Dyspnea on Exertion , PND, Lower Extremity Edema, Orthopnea, Claudication Gastrointestinal: DENIES: Abdominal pain, Black stools, Bloody stools, Constipation, Diarrhea, Nausea, Vomiting, Difficulty Swallowing, Anorexia Genitourinary: DENIES: Abnormal vaginal bleeding, Dysmenorrhea, Dyspareunia, Sexual dysfunction, Urinary frequency, Urinary incontinence, Urgency, Hematuria , Dysuria, Nocturia, Vaginal discharge Musculoskeletal: DENIES: Joint pain, Muscle aches, Stiffness, Joint Swelling, Back pain, Neck pain Integumentary: DENIES: Abnormal pigmentation, Pruritus, Rash, Nail changes, Breast masses, Breast skin changes, Nipple discharge Hematologic/lymphatic: DENIES: Bruising, Lymphadenopathy Immunologic/allergic: DENIES: Eczema, Urticaria Neurologic: DENIES: Abnormal gait, Headache, Localized weakness, Paresthesias, Seizures, Speech Problems, Tremor, Poor Balance Psychiatric: COMPLAINS OF: Depression, Suicidal Ideation Past Family Social History Coded Allergies: acetaminophen (Unverified Allergy, Severe, Hives, Vomiting, 05/18/17) adhesive (Unverified Allergy, Severe, ALL TAPE EXCEPT PAPER TAPE = BLISTERS, 05/18/17) hydrocodone (Unverified Allergy, Severe, Hives, Vomiting, 05/18/17) ketorolac (Unverified Allergy, Intermediate, Rash, 05/18/17) morphine (Unverified Allergy, Intermediate, Hives, 05/18/17) tramadol (Unverified Allergy, Mild, Hives, 05/18/17) *MDRO Multi-Drug Resistant Organism (Verified Adverse Reaction, Unknown, ) 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 Reported Medications Sertraline (Sertraline) 50 Mg Tab, 50 MG PO DAILY, #30 TAB 0 Refills 05/11/17 Rifaximin (Xifaxan) 550 Mg Tab, 550 MG PO Q12HR for Hepatic encephalopathy, #60 TAB 0 Refills 05/11/17 Promethazine (Phenergan) 25 Mg Tablet, 25 MG PO Q6H Y for NAUSEA OR VOMITING, TAB 0 Refills 05/11/17 Potassium Chloride ER (Potassium Chloride ER) 20 Meq Tab, 10 MEQ PO DAILY for Electrolyte Replacement, #30 TAB 0 Refills 05/11/17 Levothyroxine (Levothyroxine) 75 Mcg Tab, 75 MCG PO DAILY for Thyroid, #30 TAB 0 Refills 05/11/[address] (Aspirin DR) 81 Mg Tabdr, 81 MG PO DAILY, TAB 0 Refills 05/11/17 Rivaroxaban (Xarelto) 20 Mg Tab, 20 MG PO DAILY for Blood Clot Prevention, TAB 0 Refills 05/11/17 Divalproex ER (Divalproex ER) 250 Mg Emily, 500 MG PO DAILY for Control Seizures , #30 TAB 0 Refills 11/26/16 Atorvastatin (Atorvastatin) 80 Mg Tab, 80 MG PO DAILY for Cholesterol Management , #30 TAB 0 Refills 11/26/16 Insulin Human Regular Inj (Novolin R Inj) 1,000 Unit/10 Ml Vial, 0 SQ DIRECTED for Blood Sugar Management, #10 ML 0 Refills Sliding Scale As Directed. 11/26/16 Insulin Glargine Inj (Lantus Inj) 100 Unit/Ml Inj, 30 UNITS SQ BID 11/26/16 Zolpidem (Ambien) 10 Mg Tab, 10 MG PO HS Y for INSOMNIA, TAB 0 Refills 11/26/16 Lorazepam (Lorazepam) 2 Mg Tab, 2 MG PO Q8H Y for ANXIETY, TAB 0 Refills 11/26/16 Sumatriptan (Imitrex) 50 Mg Tab, 50 MG PO ONCE Y for MIGRAINE HEADACHE, TAB 0 Refills If a satisfactory response has not been obtained at 2 hours, a second dose may be administered 11/26/[address] (Duloxetine DR) 60 Mg Capdr, 60 MG PO DAILY, #30 CAP 0 Refills 11/26/[address] (Nexium) 40 Mg Capdr, 40 MG PO DAILY, CAP 0 Refills 11/26/16 Cetirizine (Cetirizine) 10 Mg Tab, 10 MG PO DAILY Y for NASAL CONGESTION, TAB 0 Refills 11/26/16 Estradiol (Estrace) 0.5 Mg Tab, 0.5 MG PO DAILY for Estrogen Supplements, #30 TAB 0 Refills 11/26/16 Gabapentin (Gabapentin) 300 Mg Cap, 400 MG PO QID, #90 CAP 0 Refills 11/26/16 Discontinued Reported Medications Furosemide (Lasix) 20 Mg Tab, 20 MG PO DAILY, #30 TAB 0 Refills 05/11/17 Current Medications Medications (Trade) Dose Ordered Sig/Jagdish Route Start Time Stop Time Status Last Admin Sodium Chloride 1,000 ml @ 100 mls/hr Q10H IV 03/28/18 20:57 03/29/18 08:57 (NS Flush) 2 ml BID IV FLUSH 03/28/18 21:00 (NS Flush) 2 ml UNSCH PRN IV FLUSH 03/28/18 21:00 (D50w (Vial) Inj) 50 ml UNSCH PRN IV PUSH 03/28/18 21:00 (Glucagon Inj) 1 mg UNSCH PRN OTHER 03/28/18 21:00 (NovoLOG SUPPLEMENTAL SCALE) 1 ACHS SLIDING SCALE SQ 03/28/18 21:00 03/28/18 21:53 (Ecotrin Ec) 81 mg DAILY PO 03/29/18 09:00 03/29/18 08:56 (Lipitor) 80 mg DAILY PO 03/29/18 09:00 03/29/18 08:56 (Depakote Er) 500 mg DAILY PO 03/29/18 09:00 03/29/18 08:56 (Cymbalta Dr) 60 mg DAILY PO 03/29/18 09:00 03/29/18 08:55 (Neurontin) 400 mg QID PO 03/29/18 09:00 03/29/18 08:55 (Levemir Inj) 30 units BID SQ 03/29/18 09:00 03/29/18 08:57 (Xifaxan) 550 mg Q12HR PO 03/29/18 09:00 03/29/18 08:55 (Xarelto) 20 mg DAILY PO 03/29/18 09:00 03/29/18 08:56 (Zoloft) 50 mg DAILY PO 03/29/18 09:00 03/29/18 08:56 (Bactroban 2% Oint) 1 applic DAILY TOPICAL 03/29/18 15:00 UNV Family Psych History No family psychiatric history Social History The patient was born and raised in [place], she lives in [place] with her friend, , mother of 2 kids, when he stated, another 28, unemployed, supported by SSI, her highest level of education is high school Patient's Strengths (min. 2) Outpatient psychiatric Physical Exam No tremors, no EPS, no psychomotor retardation or agitation, no gait disturbance Vital Signs Vital Signs Date Time Temp Pulse Resp B/P (MAP) Pulse Ox O2 Delivery O2 Flow Rate FiO2 03/29/18 11:57 98.3 86 12 164/90 (114) 99 03/28/18 21:00 Room Air Lab Results Test 03/28/18 17:00 03/28/18 17:32 03/28/18 23:41 03/29/18 04:10 White Blood Count 8.2 TH/MM3 7.3 TH/MM3 Red Blood Count 4.36 MIL/MM3 4.14 MIL/MM3 Hemoglobin 13.0 GM/DL 12.0 GM/DL Hematocrit 36.8 % 35.0 % Mean Corpuscular Volume 84.2 FL 84.4 FL Mean Corpuscular Hemoglobin 29.7 PG 29.0 PG Mean Corpuscular Hemoglobin Concent 35.3 % 34.4 % Red Cell Distribution Width 13.3 % 13.7 % Platelet Count 175 TH/MM3 156 TH/MM3 Mean Platelet Volume 9.2 FL 9.0 FL Neutrophils (%) (Auto) 56.0 % 45.4 % Lymphocytes (%) (Auto) 33.3 % 44.1 % Monocytes (%) (Auto) 8.6 % 7.3 % Eosinophils (%) (Auto) 1.4 % 2.2 % Basophils (%) (Auto) 0.7 % 1.0 % Neutrophils # (Auto) 4.6 TH/MM3 3.3 TH/MM3 Lymphocytes # (Auto) 2.7 TH/MM3 3.2 TH/MM3 Monocytes # (Auto) 0.7 TH/MM3 0.5 TH/MM3 Eosinophils # (Auto) 0.1 TH/MM3 0.2 TH/MM3 Basophils # (Auto) 0.1 TH/MM3 0.1 TH/MM3 CBC Comment DIFF FINAL DIFF FINAL Differential Comment Erythrocyte Sedimentation Rate 39 mm/hr Prothrombin Time 9.5 SEC Prothromb Time International Ratio 0.9 RATIO Activated Partial Thromboplast Time 21.3 SEC Blood Urea Nitrogen 25 MG/DL 25 MG/DL Creatinine 1.30 MG/DL 1.05 MG/DL Random Glucose 378 MG/DL 188 MG/DL Total Protein 7.3 GM/DL Albumin 3.4 GM/DL Calcium Level 8.3 MG/DL 8.1 MG/DL Magnesium Level 2.2 MG/DL Alkaline Phosphatase 171 U/L Aspartate Amino Transf (AST/SGOT) 16 U/L Alanine Aminotransferase (ALT/SGPT) 27 U/L Total Bilirubin 0.2 MG/DL Sodium Level 134 MEQ/L 140 MEQ/L Potassium Level 4.2 MEQ/L 4.0 MEQ/L Chloride Level 100 MEQ/L 106 MEQ/L Carbon Dioxide Level 25.1 MEQ/L 24.9 MEQ/L Anion Gap 9 MEQ/L 9 MEQ/L Estimat Glomerular Filtration Rate 43 ML/MIN 55 ML/MIN Total Creatine Kinase 104 U/L 65 U/L 50 U/L Creatine Kinase MB 2.4 NG/ML Troponin I LESS THAN 0.02 NG/ML LESS THAN 0.02 NG/ML LESS THAN 0.02 NG/ML C-Reactive Protein 0.30 MG/DL Lipase 905 U/L Thyroid Stimulating Hormone 3rd Gen 1.550 uIU/ML Ethyl Alcohol Level LESS THAN 3 MG/DL B-Hydroxybutyrate 0.10 MMOL/L Urine Color YELLOW Urine Turbidity CLEAR Urine pH 5.0 Urine Specific [place] 1.017 Urine Protein 100 mg/dL Urine Glucose (UA) >=500 mg/dL Urine Ketones NEG mg/dL Urine Occult Blood SMALL Urine Nitrite NEG Urine Bilirubin NEG Urine Urobilinogen LESS THAN 2 mg/dL Urine Leukocyte Esterase NEG Urine RBC 1 /hpf Urine WBC 1 /hpf Urine Squamous Epithelial Cells 3 /hpf Urine Mucus FEW /lpf Microscopic Urinalysis Comment CULT NOT INDICATED Urine Opiates Screen NEG Urine Barbiturates Screen NEG Urine Amphetamines Screen NEG Urine Benzodiazepines Screen NEG Urine Cocaine Screen NEG Urine Cannabinoids Screen NEG Test 03/29/18 11:30 Stool C. difficile Toxin (PCR) NEGATIVE Stl C. difficile Toxin Epiderm 027 PRESUMPTIVE NEGATIVE Mental Status Examination Appearance: Appropriate Consciousness: Alert Orientation: x4 Motor Activity: Normal gait Speech: Unremarkable Language: Adequate Fund of Knowledge: Adequate Attention and Concentration: Adequate Memory: Unremarkable Mood: Sad Affect: Flat Thought Process & Associations: Intact Thought Content: Appropriate Hallucination Type: None Delusion Type: None Suicidal Ideation: Yes Suicidal Plan: Yes Suicidal Intention: No Homicidal Ideation: No Homicidal Plan: No Homicidal Intention: No Insight: Poor Judgment: Poor Assessment & Plan Problem List: (1) Major depressive disorder, recurrent ICD Codes: F33.9 - Major depressive disorder, recurrent, unspecified Assessment & Plan: On psychiatric evaluation today the patient presents with symptoms of acute depression consistent on hopelessness, helplessness, lack of motivation, poor sleep, generalized pessimism, suicidal ideation in the context of family dynamic conflicts. This is a patient with psychiatric history of depression, she never been hospitalized before, no previous suicidal attempts, she has being treated outpatient by Dr. Evans with Cymbalta 60 mg, Zoloft 50 mg , Ativan 1 mg twice daily. At this moment given her current presentation and active suicidal ideation, the patient represents risk of danger to self. Patient will be admitted in psychiatry for stabilization and safety. I will restart her Cymbalta 60 mg, Zoloft will be increased to 100 mg to help with depression. We will start clonazepam 0.5 mg 3 times daily for anxiety. Transfer to psychiatry was medically stable. Brief supportive psychotherapy, motivational psych education provided Assessment & Plan Estimated LOS: Stanley See MD Mar 29, 2018 15:05
--- NOTE | 2018-03-29 15:11 | MB ---
cc: Samara Trejo DPM DATE: 03/29/2018 CHIEF COMPLAINT: Right foot ulceration. HISTORY OF PRESENT ILLNESS: Ms. Jones is a 52-year-old female patient brought to the emergency department under [place] [facility] for suicidal ideation. The patient states that she has had a wound on the right foot for approximately 2 years now. She was routinely seen at the [facility] and the [facility], but states that she has not been taking care of herself recently and has not been following up with her appointment as she should. She states that the area is tender, but she denies any drainage, nausea, vomiting, fever, headaches or chills associated with it. PAST MEDICAL HISTORY: Includes diabetes mellitus, coronary artery disease, hypertension, hyperlipidemia, depression. PAST SURGICAL HISTORY: Include eye surgery, ear surgery, arm surgery, cholecystectomy, appendectomy. MEDICATIONS: Please see list. ALLERGIES: ACETAMINOPHEN, ADHESIVES, HYDROCODONE, KETOROLAC, MORPHINE AND TRAMADOL. FAMILY HISTORY: Noncontributory. SOCIAL HISTORY: The patient smokes approximately half pack a day. Denies any illicit drug or alcohol abuse. LABORATORY DATA: White count 7.3, hemoglobin 12.0, hematocrit 35.0, platelets 157. INR 0.9. Sodium 140, potassium 4.0, chloride 106, carbon dioxide 24.9, BUN 25. C-reactive protein 0.3. Foot x-rays are negative for any signs of gas in the soft tissue or cortical erosion. No fractures noted either. PHYSICAL EXAMINATION: The patient has palpable diminished pulses. Capillary refill time less than 3 seconds. Gross sensation is intact. She has a hypertrophic cauliflower type wound on the lateral aspect of the fifth metatarsal base. There is deep probing, but no exposed to bone. No purulent drainage, no malodor, no erythema, no signs of acute infection. ASSESSMENT AND PLAN: 1)Right foot stage II ulceration, uninfected. -No surgical intervention plans at this time. -The patient was advised she needs to return to the [facility], as she would benefit from routine debridement of the excessive hypertrophic tissue. We will begin bandaging daily as a prophylaxis to prevent any infection. -A surgical shoe was ordered to facilitate in ambulation. -Thank you for involving us in this patient's care. Please do not hesitate to call if we can be of any more assistance. FRAN Trevino/SHEFALI , 02:53 PM , 03:10 PM MTDDarrius
[2018-03-29 16:00] VITALS: BP 165/80; PULSE 87; RESP 16; TEMP 98.4; O2SAT 95
[2018-03-30] MEDS ORDERED: Nystatin Powder TOPICAL (13:52)
== END 2018-03-29 20:06 ==
LOC: NEPE 15:44 → NEDA 20:11 → NEPFCDU 22:07
PROVIDERS: ADMIT Hospitalist; ATTEND Hospitalist
DX: E11.621 Type 2 diabetes mellitus with foot ulcer (principal); L97.519 Non-pressure chronic ulcer of other part of right foot with unspecified severity; I12.9 Hypertensive chronic kidney disease with stage 1 through stage 4 chronic kidney disease, or unspecified chronic kidney disease; N18.9 Chronic kidney disease, unspecified; R16.1 Splenomegaly, not elsewhere classified; E78.5 Hyperlipidemia, unspecified; E78.00 Pure hypercholesterolemia, unspecified; F41.9 Anxiety disorder, unspecified; F31.9 Bipolar disorder, unspecified; I25.10 Atherosclerotic heart disease of native coronary artery without angina pectoris; F17.210 Nicotine dependence, cigarettes, uncomplicated; K74.60 Unspecified cirrhosis of liver; I25.2 Old myocardial infarction; K21.9 Gastro-esophageal reflux disease without esophagitis; G47.30 Sleep apnea, unspecified; R45.851 Suicidal ideations; Z79.4 Long term (current) use of insulin; Z86.718 Personal history of other venous thrombosis and embolism; Z83.3 Family history of diabetes mellitus; Z82.49 Family history of ischemic heart disease and other diseases of the circulatory system
CPT/HCPCS: 71045; 73630; 74176; 80048; 80053; 80307; 81001; 82010; 82550; 82552; 82805; 82948; 83690; 83735; 84443; 84484; 85025; 85610; 85652; 85730; 86140; 87493; 93005; 96360; 96361; 96372; 99285; G0378; J1644; J1815; J7030; L3260

== ENCOUNTER 2018-03-29 17:29 | Inpatient (IN) | payer MEDICARE, OTHER ==
[~2018-03-29] VITALS: Ht 160 cm; Wt 67.5 kg
[~2018-03-29 17:29] MED LIST changes: -FURO1TAB62 PO
[2018-03-29 19:45] VITALS: BP 150/79; PULSE 87; RESP 20; TEMP 98.5; O2SAT 96
[2018-03-29] MEDS ORDERED: ACETAMINOPHEN 325 MG TAB PO PRN (20:30)
[2018-03-29] MEDS ORDERED: LORazepam 2 MG/ML VIAL IM PRN ×2 (20:30)
[2018-03-29] MEDS ORDERED: MAGNESIUM HYDROXIDE SUSP 30 ML CUP PO PRN (20:30)
[2018-03-29] MEDS ORDERED: LORazepam 1 MG TAB PO PRN (20:30)
[2018-03-29] MEDS ORDERED: LORazepam 0.5 MG TAB PO PRN (20:30)
[2018-03-29] MEDS ORDERED: ALUMINUM/MAGNESIUM/SIMETH 30 ML CUP PO PRN (20:30)
[2018-03-30 06:19] VITALS: BP 162/79; PULSE 84; RESP 18; TEMP 98.2; O2SAT 95
[2018-03-30] MEDS ORDERED: NICOTINE 21 MG/24 HR PATCH T-DERMAL SCH (09:00)
[2018-03-30 11:06] LABS: BICARBONATE 27.5 MEQ/L (21.0-32.0); BLOOD UREA NITROGEN 14 MG/DL (7-18); CALCIUM 8.9 MG/DL (8.5-10.1); CHLORIDE 104 MEQ/L (98-107); CHOLESTEROL 164 MG/DL (120-200); CHOLESTEROL/ HDL RATIO 3.96 RATIO; CREATININE 1.03 MG/DL (0.50-1.00); GLOMERULAR FILTRATION RATE 56 ML/MIN (>89); GLUCOSE,RANDOM 358 MG/DL (74-106); HDL CHOLESTEROL 41.4 MG/DL (40.0-60.0); SODIUM (NA) 139 MEQ/L (136-145); TRIGLYCERIDES 473 MG/DL (42-150)
[2018-03-30] MEDS ORDERED: PANTOPRAZOLE SOD 40 MG DELAYED RELEASE TAB PO SCH (12:15)
[2018-03-30] MEDS ORDERED: LEVOTHYROXINE SODIUM 75 MCG TAB PO SCH (12:15)
[2018-03-30] MEDS ORDERED: RIFAXIMIN 550 MG TAB PO SCH (12:15)
[2018-03-30] MEDS ORDERED: ASPIRIN EC 81 MG TABEC PO SCH (12:15)
[2018-03-30] MEDS ORDERED: INSULIN DETEMIR 100 UNITS/ML VIAL SQ SCH (12:15)
[2018-03-30] MEDS ORDERED: ATORVASTATIN 80 MG TAB PO SCH (12:15)
[2018-03-30] MEDS ORDERED: CETIRIZINE HCL 10 MG TAB PO PRN (12:30)
[2018-03-30] MEDS ORDERED: PROMETHAZINE HCL 25 MG TAB PO PRN (12:30)
[2018-03-30] MEDS ORDERED: DEXTROSE 50% IN WATER 50 ML VIAL(D50) IV PUSH PRN (12:30)
[2018-03-30] MEDS ORDERED: DIVALPROEX SODIUM E.R. 500 MG TAB PO SCH (12:30)
[2018-03-30] MEDS ORDERED: SUMAtriptan SUCCINATE 50 MG TAB PO PRN (12:30)
[2018-03-30] MEDS ORDERED: RIVAROXABAN 20 MG TAB PO SCH (12:30)
[2018-03-30] MEDS ORDERED: ESTRADIOL 1 MG TAB PO SCH (12:30)
[2018-03-30] MEDS ORDERED: GLUCAGON 1 MG/ML VIAL OTHER PRN (12:30)
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
[2018-03-30] MEDS ORDERED: NYSTATIN 100,000 U/GM PWD 15 GM BTL TOPICAL SCH (12:45)
[2018-03-30] MEDS ORDERED: PILL SPLITTER OTHER PRN (12:45)
[2018-03-30] MEDS ORDERED: BACITRACIN TOP OINT 15 GM TUBE TOPICAL SCH (12:45)
[2018-03-30] MEDS: GABAPENTIN 400 MG CAP PO SCH ×2 (13:00→16:51)
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
[2018-03-30] MEDS ORDERED: Nystatin Powder TOPICAL (13:52)
[2018-03-30 14:31] LABS: HEMOGLOBIN A1C 12.4 % (4.3-6.0)
[2018-03-30] MEDS ORDERED: INSULIN ASPART SUPPLEMENTAL SCALE SQ SCH (17:00)
== END 2018-03-30 17:20 | disposition home or self-care (01) | DRG 882 ==
LOC: H250 19:30
PROVIDERS: ADMIT Psychiatry & Neurology Psychiatry; ATTEND Psychiatry & Neurology Psychiatry
DX: F43.25 Adjustment disorder with mixed disturbance of emotions and conduct (principal); E11.22 Type 2 diabetes mellitus with diabetic chronic kidney disease; R45.851 Suicidal ideations; E11.40 Type 2 diabetes mellitus with diabetic neuropathy, unspecified; I12.9 Hypertensive chronic kidney disease with stage 1 through stage 4 chronic kidney disease, or unspecified chronic kidney disease; F17.200 Nicotine dependence, unspecified, uncomplicated; N18.3 Chronic kidney disease, stage 3 (moderate); L97.519 Non-pressure chronic ulcer of other part of right foot with unspecified severity; I25.10 Atherosclerotic heart disease of native coronary artery without angina pectoris; E78.5 Hyperlipidemia, unspecified; Z88.8 Allergy status to other drugs, medicaments and biological substances; Z79.82 Long term (current) use of aspirin; Z79.4 Long term (current) use of insulin; Z88.5 Allergy status to narcotic agent; Z79.899 Other long term (current) drug therapy; Z86.718 Personal history of other venous thrombosis and embolism; I25.2 Old myocardial infarction
CPT/HCPCS: 80048; 80061; 82948; 83036; J1815